=== PATIENT | male | born 1965 | race Caucasian/White ===

== ENCOUNTER → 2016-07-08 | Outpatient (CLI) | payer OTHER ==
[~2016-07-08] MED LIST: ACETAMINOPHEN TAB 500 MG TAB PO ONE; LORATADINE 10 MG TAB PO ONE; SODIUM CHLORIDE 0.9% 250 ML in EMPTY BAG 1 BAG IV PRN; SODIUM CHLORIDE 0.9% 500 ML in EMPTY BAG 1 BAG IV PRN
[2016-07-08 07:43] VITALS: TEMP 97.7
[2016-07-08 09:27] VITALS: BP 153/104; PULSE 80; RESP 18
== END ==
LOC: PROCWHC3 07:28
PROVIDERS: ATTEND Physician Assistant
DX: K50.10 Crohn's disease of large intestine without complications (principal)
CPT/HCPCS: 96361; 96413; 96415; J1745

== ENCOUNTER → 2016-09-02 | Outpatient (CLI) | payer OTHER ==
[2016-09-02 08:13] VITALS: RESP 18; TEMP 98.4
[2016-09-02 09:15] VITALS: BP 128/91; PULSE 70
[2016-09-02 10:22] LABS: Basophils % (A) 1 %; CH 31.9; CHCM 35.4; Eosinophils # (A) 0.1 k/uL (0-0.7); Eosinophils % (A) 2 %; HCT 50.2 % (39.0-53.0); HDW 2.81; HGB 16.8 gm/dL (13.0-17.5); Luc # (Auto) 0.26; Luc % (Auto) 3; Lymphocytes # (A) 1.9 k/uL (1.0-4.8); Lymphocytes % (A) 24 %; MCH 30.3 pg (25.0-35.0); MCHC 33.5 g/dL (31.0-37.0); MCV 90.5 fL (80.0-100.0); Mean Platelet Volume 6.8; Monocytes # (A) 0.5 k/uL (0-1.0); Monocytes % (A) 7 %; Neutrophils % (A) 64 %; RBC 5.55 m/uL (4.30-5.90); RDW 13.4 % (11.5-15.5); WBC 7.8 k/uL (3.8-10.6); WBC (Perox) 7.93
[2016-09-02 10:40] LABS: ALT 60 U/L (21-72); AST 44 U/L (17-59); Alkaline Phosphatase 55 U/L (38-126); Anion Gap 12 mmol/L; Blood Urea Nitrogen 16 mg/dL (9-20); Calcium 9.6 mg/dL (8.4-10.2); Carbon Dioxide 29 mmol/L (22-30); Chloride 100 mmol/L (98-107); Glucose 102 mg/dL (74-99); Non-African American GFR(MDRD) >60 (>60 ml/min/1.73 sqM); Potassium 4.6 mmol/L (3.5-5.1); Sodium 141 mmol/L (137-145); Total Bilirubin 0.7 mg/dL (0.2-1.3); Total Protein 8.3 g/dL (6.3-8.2)
== END | disposition home or self-care (01) ==
LOC: PROCWHC3 07:49
DX: K50.10 Crohn's disease of large intestine without complications (principal)
CPT/HCPCS: 80053; 85025; 96361; 96413; 96415; 36415; J1745

== ENCOUNTER → 2016-10-28 | Outpatient (CLI) | payer OTHER ==
[~2016-10-28] MED LIST changes: -ACETAMINOPHEN TAB 500 MG TAB PO ONE; -LORATADINE 10 MG TAB PO ONE
[2016-10-28 08:11] VITALS: TEMP 98
[2016-10-28 09:54] VITALS: BP 141/91; PULSE 76; RESP 20
== END | disposition home or self-care (01) ==
LOC: PROCWHC3 07:44
DX: K50.90 Crohn's disease, unspecified, without complications (principal)
CPT/HCPCS: 96413; 96415; J1745

== ENCOUNTER → 2017-01-08 | Outpatient (CLI) | payer OTHER ==
[~2017-01-08] MED LIST changes: +ACETAMINOPHEN TAB 500 MG TAB PO ONE; +LORATADINE 10 MG TAB PO ONE
[2017-01-08 09:11] VITALS: RESP 16; TEMP 98
[2017-01-08 10:34] VITALS: BP 129/80; PULSE 60
== END ==
LOC: PROCWHC3 08:56
DX: Z51.11 Encounter for antineoplastic chemotherapy (principal); K50.10 Crohn's disease of large intestine without complications
CPT/HCPCS: 96413; 96415; J1745

== ENCOUNTER → 2017-03-05 | Outpatient (CLI) | payer OTHER ==
[~2017-03-05] MED LIST changes: -ACETAMINOPHEN TAB 500 MG TAB PO ONE; -LORATADINE 10 MG TAB PO ONE; -SODIUM CHLORIDE 0.9% 250 ML in EMPTY BAG 1 BAG IV PRN; -SODIUM CHLORIDE 0.9% 500 ML in EMPTY BAG 1 BAG IV PRN; +TUBERCULIN PPD (SKIN TEST) 5 UNIT/0.1 ML (MDV) VIAL INTRADERMA NR
[2017-03-05 09:18] VITALS: BP 124/87; PULSE 68; RESP 16; TEMP 98
== END ==
LOC: PROCWHC3 09:03
PROVIDERS: ATTEND Physician Assistant
DX: K50.10 Crohn's disease of large intestine without complications (principal)
CPT/HCPCS: 86580

== ENCOUNTER → 2018-03-09 | Outpatient (CLI) | payer OTHER ==
[2018-03-09 15:28] LABS: HCT 46.4 % (39.0-53.0); HGB 16.2 gm/dL (13.0-17.5); MCH 31.3 pg (25.0-35.0); MCHC 34.9 g/dL (31.0-37.0); MCV 89.6 fL (80.0-100.0); Mean Platelet Volume 6.4; Platelet Count 232 k/uL (150-450); RBC 5.17 m/uL (4.30-5.90); RDW 13.2 % (11.5-15.5); WBC 9.8 k/uL (3.8-10.6)
[2018-03-09 15:54] LABS: ALT 40 U/L (21-72); AST 40 U/L (17-59); Albumin 4.9 g/dL (3.5-5.0); Alkaline Phosphatase 61 U/L (38-126); Anion Gap 11 mmol/L; Blood Urea Nitrogen 21 mg/dL (9-20); C Reactive Protein <5.0 mg/L (<10.0); Carbon Dioxide 27 mmol/L (22-30); Chloride 99 mmol/L (98-107); Glucose 92 mg/dL (74-99); Sodium 137 mmol/L (137-145); Total Bilirubin 1.2 mg/dL (0.2-1.3); Total Protein 8.6 g/dL (6.3-8.2)
[2018-03-09 16:49] LABS: Erythrocyte Sedimentation Rate 3 mm/hr (0-15)
== END | disposition home or self-care (01) ==
LOC: LABWHC1 14:57
DX: K50.10 Crohn's disease of large intestine without complications (principal)
CPT/HCPCS: 36415; 80053; 85027; 85652; 86140; 86480

== ENCOUNTER 2018-04-25 17:08 | Emergency (ER) | payer OTHER ==
[2018-04-25 17:12] VITALS: BP 144/104; PULSE 94; RESP 18; TEMP 98.5
[2018-04-25] MEDS ORDERED: ASPIRIN 81 MG PO STA (17:26)
[2018-04-25] MEDS ORDERED: KETOROLAC 30 MG/ML 1 ML VIAL IVP STA (17:26)
--- NOTE | 2018-04-25 17:32 | ED ---
Chest Pain HPI - General Chief Complaint: Chest Pain Stated Complaint: CP Time Seen by Provider: 04/25/18 17:18 Source: patient, RN notes reviewed Mode of arrival: ambulatory Limitations: no limitations - History of Present Illness Initial Comments: This is a 52-year-old male with no prior history of heart or lung disease who had the onset prior to admission of some sharp bee sting leg left anterior chest pain while watching a football game earlier.His blood pressure was elevated. The pain was 4-5/10 severity that radiated to the back he denies any fevers chills nausea vomiting sweats cough or phlegm production. He does admit to doing some lifting earlier today. He had no prior pain like this before he points to the costal sternal margin the lower left side. MD Complaint: chest pain - Related Data Home Medications Medication Instructions Recorded Confirmed Zolpidem [Ambien] 5 mg PO HS PRN 11/22/13 03/05/17 inFLIXimab [Remicade] 500 mg IVPB DIRECTED 11/22/13 03/05/17 Levothyroxine Sodium [Synthroid] 175 mcg PO DAILY 01/09/16 03/05/17 Benazepril HCl 40 mg PO DAILY 09/02/16 03/05/17 Previous Rx's Medication Instructions Recorded Ibuprofen 800 mg PO Q6HR PRN #20 tablet 04/25/18 Allergies Allergy/AdvReac Type Severity Reaction Status Date / Time No Known Allergies Allergy Verified 04/25/18 17:12 Review of Systems ROS Statement: Those systems with pertinent positive or pertinent negative responses have been documented in the HPI. ROS Other: All systems not noted in ROS Statement are negative. EKG Findings - EKG Results: EKG: interpreted by ALEJANDRINA DELGADO, sinus rhythm, normal axis, normal QRS, normal ST/ T, no acute changes (Normal sinus rhythm with a rate of 83. Interval 190 QRS duration 90 QT since QTC 362/[address]-T wave changes) Past Medical History Past Medical History: Hypertension, Thyroid Disorder Additional Past Medical History / Comment(s): CROHN'S DISEASE, History of Any Multi-Drug Resistant Organisms: None Reported Additional Past Surgical History / Comment(s): COLONOSCOPY, Past Anesthesia/Blood Transfusion Reactions: No Reported Reaction Past Psychological History: No Psychological Hx Reported Smoking Status: Never smoker Past Alcohol Use History: Occasional Past Drug Use History: None Reported - Past Family History Father Family Medical History: Cancer General Exam - General Exam Comments Initial Comments: This is a well-developed well-nourished awake alert oriented 3 male Limitations: no limitations General appearance: alert, in no apparent distress Head exam: Present: atraumatic, normocephalic, normal inspection Eye exam: Present: normal appearance, PERRL, EOMI. Absent: scleral icterus, conjunctival injection, periorbital swelling ENT exam: Present: normal exam, mucous membranes moist Neck exam: Present: normal inspection. Absent: tenderness, meningismus, lymphadenopathy Respiratory exam: Present: normal lung sounds bilaterally, chest wall tenderness (Reproducible tennis palpation on the left costochondral costal sternal margin no step-off or crepitation). Absent: respiratory distress, wheezes, rales, rhonchi, stridor Cardiovascular Exam: Present: regular rate, normal rhythm, normal heart sounds. Absent: systolic murmur, diastolic murmur, rubs, gallop, clicks GI/Abdominal exam: Present: soft, normal bowel sounds. Absent: distended, tenderness, guarding, rebound, rigid Extremities exam: Present: normal inspection, full ROM, normal capillary refill. Absent: tenderness, pedal edema, joint swelling, calf tenderness Back exam: Present: normal inspection Neurological exam: Present: alert, oriented X3, CN II-XII intact Psychiatric exam: Present: normal affect, normal mood Skin exam: Present: warm, dry, intact, normal color. Absent: rash Course Vital Signs 04/25/18 17:11 Temperature 98.5 F Pulse Rate 94 Respiratory 18 Rate Blood Pressure 144/104 O2 Sat by Pulse 100 Oximetry Chest Pain MDM - MDM Review the imaging shows no acute findings. Patient is feeling much improved after IV Toradol the presentation is consistent with chest wall pain noncardiac pain. He will be discharged we did discuss his creatinine he is increase his oral fluids follow-up with his doctor return when necessary Disposition Clinical Impression: Costalchondritis, Chest wall syndrome Disposition: HOME SELF-CARE Instructions: Costochondritis (ED) Prescriptions: Ibuprofen 800 mg PO Q6HR PRN #20 tablet PRN Reason: Pain Is patient prescribed a controlled substance at d/c from ED?: No Referrals: Shaun Estrella MD [Primary Care Provider] - 1-2 days
[2018-04-25 17:39] LABS: Basophils # (A) 0.1 k/uL (0-0.2); Basophils % (A) 1 %; Eosinophils # (A) 0.1 k/uL (0-0.7); Eosinophils % (A) 2 %; HCT 48.1 % (39.0-53.0); HGB 16.4 gm/dL (13.0-17.5); Lymphocytes # (A) 2.2 k/uL (1.0-4.8); Lymphocytes % (A) 29 %; MCH 31.2 pg (25.0-35.0); MCV 91.6 fL (80.0-100.0); Mean Platelet Volume 6.7; Monocytes # (A) 0.7 k/uL (0-1.0); Monocytes % (A) 10 %; Neutrophils # (A) 4.4 k/uL (1.3-7.7); Neutrophils % (A) 56 %; Platelet Count 267 k/uL (150-450); RBC 5.25 m/uL (4.30-5.90); WBC 7.8 k/uL (3.8-10.6)
[2018-04-25 17:50] LABS: Albumin 4.7 g/dL (3.5-5.0); Calcium 9.7 mg/dL (8.4-10.2); Potassium 3.8 mmol/L (3.5-5.1); Total Bilirubin 0.6 mg/dL (0.2-1.3); Total Protein 8.2 g/dL (6.3-8.2)
[2018-04-25 17:53] LABS: D-Dimer 0.27 mg/L FEU (<0.60); INR 1.1 (<1.2); Partial Thromboplastin Time 26.1 sec (22.0-30.0); Prothrombin Time 10.8 sec (9.0-12.0)
[2018-04-25 17:59] LABS: Creatine Kinase 218 U/L (55-170)
--- NOTE | 2018-04-25 18:06 | XR ---
EXAMINATION TYPE: XR chest 2V DATE OF EXAM: 04/25/2018 COMPARISON: NONE HISTORY: Chest pain TECHNIQUE: Frontal and lateral views of the chest are obtained. FINDINGS: There is no focal air space opacity, pleural effusion, or pneumothorax seen. The cardiac silhouette size is within normal limits. The osseous structures are intact. There are overlying car diac leads. Strand-like densities at the left lung base may reflect atelectasis or scarring. IMPRESSION: Minimal basilar atelectasis or scarring.
[2018-04-25 18:12] LABS: Creatine Kinase MB 2.5 ng/mL (0.0-2.4); Troponin I <0.012 ng/mL (0.000-0.034)
== END 2018-04-25 18:44 | disposition home or self-care (01) ==
LOC: EC 17:08
DX: M94.0 Chondrocostal junction syndrome [Tietze] (principal); K50.90 Crohn's disease, unspecified, without complications; Z79.899 Other long term (current) drug therapy
CPT/HCPCS: 36415; 93005; 85379; 83880; 80053; 82550; 82553; 83735; 84484; 85025; 85610; 85730; 71046; 99285; 96374; J1885

== ENCOUNTER → 2018-10-26 | Outpatient (CLI) | payer OTHER ==
[2018-10-26 15:20] LABS: HCT 46.7 % (39.0-53.0); HGB 16.3 gm/dL (13.0-17.5); MCH 30.9 pg (25.0-35.0); MCHC 34.9 g/dL (31.0-37.0); MCV 88.6 fL (80.0-100.0); Mean Platelet Volume 6.9; Platelet Count 334 k/uL (150-450); RBC 5.26 m/uL (4.30-5.90); RDW 13.4 % (11.5-15.5); WBC 8.7 k/uL (3.8-10.6)
[2018-10-26 23:59] LABS: Albumin/Globulin Ratio 1.79 (1.60-3.17); Anion Gap 10.7 mmol/L (4.00-12.00); Calcium 9.7 mg/dL (8.7-10.3); Carbon Dioxide 25.3 mmol/L (21.6-31.8); Globulin 2.8 g/dL (1.6-3.3); Total Bilirubin 0.5 mg/dL (0.3-1.2); Total Protein 7.8 g/dL (6.2-8.2)
== END | disposition home or self-care (01) ==
LOC: LABWHC1 14:43
DX: K50.10 Crohn's disease of large intestine without complications (principal)
CPT/HCPCS: 36415; 80053; 82306; 85027

== ENCOUNTER → 2019-01-04 | Day surgery (SDC) | payer OTHER ==
[2018-12-31 12:54] VITALS: BMI 31.5
[~2019-01-04] MED LIST changes: +LACTATED RINGERS 1,000 ML IV SCH; +LIDOCAINE 1% 20 ML VIAL (10MG/ML) FOR IV START INTRADERMA PRN; +MIDAZOLAM 2 MG/2 ML VIAL ONE; +PROPOFOL 10 MG/ML 20 ML VIAL IV ONE; -TUBERCULIN PPD (SKIN TEST) 5 UNIT/0.1 ML (MDV) VIAL INTRADERMA NR; +fentaNYL (PF) 50 MCG/ML 2 ML AMP ONE
[2019-01-04 07:50] VITALS: RESP 16; TEMP 99.1
--- NOTE | 2019-01-04 09:22 | P.PCN ---
Date of Procedure: 01/04/19 Description of Procedure: BRIEF HISTORY: Patient is a 53-year-old pleasant male scheduled for an elective colonoscopy as a part of colon cancer surveillance in patient with a known history of Crohn's colitis. Originally diagnosed in 2000 the patient was started on treatment with Remicade, which was changed to Inflectra. He reports symptoms are well- controlled with one to 2 bowel movements daily without abdominal pain or blood per rectum. Last colonoscopy was in 12/2015 showing only mild nonspecific changes in the sigmoid with quiescent and inactive colitis on pathology. PROCEDURE PERFORMED: Colonoscopy with polypectomy and random biopsy. PREOPERATIVE DIAGNOSIS: Surveillance colonoscopy for ligament neoplasm of the colon, Crohn's colitis. ESTIMATED BLOOD LOSS: Minimal. IV sedation per Anesthesia. PROCEDURE: After informed consent was obtained, the patient, was brought into the endoscopy unit. IV sedation was administered by Anesthesia under continuous monitoring. Digital rectal examination was normal. Initially the Olympus CF-190 flexible video colonoscope was then inserted in the rectum, gradually advanced into the cecum without any difficulty. The terminal ileum was intubated and appeared normal with biopsies taken. Careful examination was performed as the scope was gradually being withdrawn. Ileocecal valve and the appendiceal orifice were visualized and appeared normal. Prep was excellent. Mucosa of the cecum, ascending colon, transverse colon, descending colon, sigmoid colon, and rectum appeared grossly normal except for some nonspecific changes in the distal ileum seen on previous colonoscopy and felt to be scarring from previously active disease. Random biopsies were taken every 10 cm at 80 cm from the anal verge, 70 cm, 60 cm, 50 cm, 40 cm, 30 cm, 20 cm, and 10 cm. Mild scattered sigmoid diverticulosis. Mild internal hemorrhoids. 2 diminutive sessile cecal polyps measuring 2 mm removed with cold forcep polypectomy. Retroflexion was performed in the rectum and no lesions were seen. The patient tolerated the procedure well. IMPRESSION: 2 diminutive cecal polyps removed with cold forceps from the cecum. Mild scattered sigmoid diverticulosis. Mild internal hemorrhoids. Random biopsies of the terminal ileum and every 10 cm starting from 80 cm from the anal verge to 10 cm. RECOMMENDATIONS: Findings of this examination were discussed with the patient in his father. Okay to resume high-fiber diet. Continue biologic therapy. Await pathology from biopsies. Anticipate repeat colonoscopy for surveillance in a patient with Crohn's colitis in 2 years.
[2019-01-04 09:41] VITALS: BP 127/87; PULSE 71
== END | disposition home or self-care (01) ==
LOC: ORWHC2ENDO 07:31
PROVIDERS: ATTEND Internal Medicine
DX: Z12.11 Encounter for screening for malignant neoplasm of colon (principal); K50.10 Crohn's disease of large intestine without complications; K57.30 Diverticulosis of large intestine without perforation or abscess without bleeding; K64.8 Other hemorrhoids; I10 Essential (primary) hypertension; E07.9 Disorder of thyroid, unspecified; Z79.899 Other long term (current) drug therapy; Z79.890 Hormone replacement therapy
CPT/HCPCS: 88305; 45380; 45385; J2250; J3010; J2704

== ENCOUNTER → 2020-04-24 | Outpatient (CLI) | payer OTHER ==
[2020-04-24 15:55] LABS: HCT 50.8 % (39.0-53.0); HGB 17.5 gm/dL (13.0-17.5); MCH 32.2 pg (25.0-35.0); MCHC 34.4 g/dL (31.0-37.0); MCV 93.7 fL (80.0-100.0); Mean Platelet Volume 7.6; Platelet Count 320 k/uL (150-450); RBC 5.42 m/uL (4.30-5.90); RDW 12.7 % (11.5-15.5); WBC 10.6 k/uL (3.8-10.6)
[2020-04-25 00:22] LABS: African American GFR (CKD) 87.7 (60.0-200.0); Albumin 4.9 g/dL (3.80-4.90); Albumin/Globulin Ratio 1.69 (1.60-3.17); Anion Gap 14.9 mmol/L (4.00-12.00); BUN/Creat Ratio 19.09 Ratio (12.00-20.00); Calcium 9.8 mg/dL (8.7-10.3); Carbon Dioxide 23.1 mmol/L (21.6-31.8); Globulin 2.9 g/dL (1.6-3.3); Non-African American GFR(CKD) 75.7 (60.0-200.0); Potassium 3.6 mmol/L (3.5-5.5); Total Bilirubin 0.8 mg/dL (0.3-1.2); Total Protein 7.8 g/dL (6.2-8.2)
[2020-04-25 00:36] LABS: Folate, Serum 10.2 ng/mL
== END | disposition home or self-care (01) ==
LOC: LABWHC1 14:35
PROVIDERS: ATTEND Physician Assistant
DX: K50.10 Crohn's disease of large intestine without complications (principal)
CPT/HCPCS: 36415; 80053; 82306; 82607; 82746; 85027

== ENCOUNTER → 2021-07-18 | Outpatient (CLI) | payer OTHER ==
[2021-07-18 18:41] LABS: Basophils # (A) 0.07 X 10*3/uL (0.00-0.10); Basophils % (A) 0.7 %; Eosinophils # (A) 0.09 X 10*3/uL (0.04-0.35); Eosinophils % (A) 0.9 %; HCT 47.7 % (39.6-50.0); HGB 16.3 g/dL (13.0-17.0); Lymphocytes # (A) 1.13 X 10*3/uL (0.90-5.00); Lymphocytes % (A) 11.6 %; MCHC 34.2 g/dL (32.0-37.0); MCV 90.7 fL (80.0-97.0); Monocytes # (A) 1.14 X 10*3/uL (0.20-1.00); Monocytes % (A) 11.7 %; Neutrophils # (A) 7.24 X 10*3/uL (1.80-7.70); Neutrophils % (A) 74.7 %; Platelet Count 281 X 10*3/uL (140-440); RBC 5.26 X 10*6/uL (4.40-5.60); RDW 12.8 % (11.5-14.5); WBC 9.71 X 10*3/uL (4.50-10.00)
[2021-07-18 18:55] LABS: African American GFR (CKD) 88.1 (60.0-200.0); Albumin 4.6 g/dL (3.8-4.9); Albumin/Globulin Ratio 1.37 (1.60-3.17); Anion Gap 12.9 mmol/L (10.00-18.00); BUN/Creat Ratio 18.17 Ratio (12.00-20.00); Blood Urea Nitrogen 19.8 mg/dL (9.0-27.0); Calcium 9.5 mg/dL (8.7-10.3); Carbon Dioxide 23.3 mmol/L (20.0-27.5); Globulin 3.3 g/dL (1.6-3.3); Potassium 4.1 mmol/L (3.5-5.5); Total Bilirubin 0.6 mg/dL (0.30-1.20); Total Protein 7.9 g/dL (6.2-8.2)
== END | disposition home or self-care (01) ==
LOC: LABWHC1 10:42
PROVIDERS: ATTEND Internal Medicine Gastroenterology
DX: K50.10 Crohn's disease of large intestine without complications (principal)
CPT/HCPCS: 36415; 80053; 85025; 86480

== ENCOUNTER 2024-06-21 09:03 | Emergency (ER) | payer BC, OTHER ==
[2024-06-21 09:09] VITALS: TEMP 98
--- NOTE | 2024-06-21 09:24 | ED ---
SOB HPI - General Chief Complaint: Shortness of Breath Stated Complaint: Abd pain,vomiting Time Seen by Provider: 06/21/24 09:24 Source: patient, RN notes reviewed, old records reviewed Mode of arrival: wheelchair Limitations: no limitations - History of Present Illness Initial Comments: This is a 58-year-old male presenting today. Patient presents for evaluation of chest pain and epigastric abdominal pain unable to sleep or get comfortable unable to lie down flat with shortness of breath. Patient has underlying history of Crohn's disease. Patient does have sick contacts including positive holiday democrat but does not believe he knows anyone that his specific diagnosis. He does have nausea no vomiting occasional diarrhea. Also complaining of abdominal pain MD Complaint: shortness of breath, cough -: days(s) (2) Severity: moderate Severity scale (1-10): 4 Consistency: constant Improves With: nothing Worsens With: lying flat Associated Symptoms: cough, orthopnea Treatments Prior to Arrival: none - Related Data Home Medications Medication Instructions Recorded Confirmed Adalimumab [Humira(Cf) Pen] 40 mg SQ Q14D 06/21/24 06/21/24 Levothyroxine Sodium [Synthroid] 200 mcg PO DAILY 06/21/24 06/21/24 Zolpidem Tartrate [Ambien] 10 mg PO HS PRN 06/21/24 06/21/24 amLODIPine [Norvasc] 5 mg PO DAILY 06/21/24 06/21/24 hydroCHLOROthiazide [Hydrodiuril] 25 mg PO DAILY 06/21/24 06/21/24 lisinopriL 30 mg PO DAILY 06/21/24 06/21/24 prednisoLONE ACETATE 1% OPHTH 1 drop BOTH EYES BID PRN 06/21/24 06/21/24 [Pred Forte 1%] Allergies Allergy/AdvReac Type Severity Reaction Status Date / Time No Known Allergies Allergy Verified 06/21/24 13:32 Review of Systems ROS Statement: Those systems with pertinent positive or pertinent negative responses have been documented in the HPI. ROS Other: All systems not noted in ROS Statement are negative. Past Medical History Past Medical History: Hypertension, Thyroid Disorder Additional Past Medical History / Comment(s): CROHN'S DISEASE, History of Any Multi-Drug Resistant Organisms: None Reported Additional Past Surgical History / Comment(s): COLONOSCOPY, Past Anesthesia/Blood Transfusion Reactions: No Reported Reaction Past Psychological History: No Psychological Hx Reported Past Alcohol Use History: Occasional Past Drug Use History: None Reported - Past Family History Father Family Medical History: Cancer General Exam Limitations: no limitations General appearance: alert, in no apparent distress Head exam: Present: atraumatic, normocephalic, normal inspection Eye exam: Present: normal appearance, PERRL, EOMI. Absent: scleral icterus, conjunctival injection, periorbital swelling ENT exam: Present: normal exam, mucous membranes moist Neck exam: Present: normal inspection. Absent: tenderness, meningismus, lymphadenopathy Respiratory exam: Present: normal lung sounds bilaterally. Absent: respiratory distress, wheezes, rales, rhonchi, stridor Cardiovascular Exam: Present: regular rate, normal rhythm, normal heart sounds. Absent: systolic murmur, diastolic murmur, rubs, gallop, clicks GI/Abdominal exam: Present: soft, normal bowel sounds. Absent: distended, tenderness, guarding, rebound, rigid Extremities exam: Present: normal inspection, full ROM, normal capillary refill. Absent: tenderness, pedal edema, joint swelling, calf tenderness Back exam: Present: normal inspection Neurological exam: Present: alert, oriented X3, CN II-XII intact Psychiatric exam: Present: normal affect, normal mood Skin exam: Present: warm, dry, intact, normal color. Absent: rash Course Vital Signs 06/21/24 06/21/24 06/21/24 09:07 12:56 13:46 Temperature 98.0 F Pulse Rate 103 H 89 83 Respiratory 20 20 18 Rate Blood Pressure 149/96 135/94 126/83 O2 Sat by Pulse 95 95 94 L Oximetry - Reevaluation(s) Reevaluation #1: 06/21/24 12:55 Medical records reviewed Reevaluation #2: 06/21/24 13:12 Patient symptoms improved here in the ER Reevaluation #3: 06/21/24 13:12 Patient informed of results and questions answered Reevaluation #4: Was pt. sent in by a medical professional or institution (, PA, ELECTRICIAN CHIEF, urgent care, hospital, or [place] health care facility...) When possible be specific @ -no Did you speak to anyone other than the patient for history (EMS, parent, family, police, friend...)? What history was obtained from this source @ -no Did you review nursing and triage notes (agree or disagree)? Why? @ -agree Are old charts reviewed (outside hosp., previous admission, EMS record, old EKG, old radiological studies, urgent care reports/EKG's, [place] health care facility records)? Report findings @ -yes Differential Diagnosis (chest pain, altered mental status, abdominal pain women, abdominal pain men, vaginal bleeding, weakness, fever, dyspnea, syncope, headache, dizziness, GI bleed, back pain, seizure, CVA, palpatations, mental health, musculoskeletal)? @ -prior EKG interpreted by me (3pts min.). @ -yes X-rays interpreted by me (1pt min.). @ -yes negative for acute disease CT interpreted by me (1pt min.). @ -no U/S interpreted by me (1pt. min.). @ -no What testing was considered but not performed or refused? (CT, X-rays, U/S, labs)? Why? @ -none What meds were considered but not given or refused? Why? @ -none Did you discuss the management of the patient with other professionals (professionals i.e. , PA, ELECTRICIAN CHIEF, lab, RT, psych nurse, vp digital marketing social media and crm, security system technician, teacher, worldwide chief creative officer, case finishing machine adjuster)? Give summary @ -no Was smoking cessation discussed for >3mins.? @ -no Was critical care preformed (if so, how long)? @ -no Were there social determinants of health that impacted care today? How? (Homelessness, low income, unemployed, alcoholism, drug addiction, transportati on, low edu. Level, literacy, decrease access to med. care, detention, rehab)? @ -none Was there de-escalation of care discussed even if they declined (Discuss DNR or withdrawal of care, Hospice)? DNR status @ -no What co-morbidities impacted this encounter? (DM, HTN, Smoking, COPD, CAD, Cancer, CVA, ARF, Chemo, Hep., AIDS, mental health diagnosis, sleep apnea, morbid obesity)? @ -none Was patient admitted / discharged? Hospital course, mention meds given and route, prescriptions, significant lab abnormalities, going to OR and other pertinent info. @ - 58 male nausea vomiting no acute findings on CT scan lab testing is normal patient given symptomatic treatment and can be discharged home Discharge Undiagnosed new problem with uncertain prognosis? @ -no Drug Therapy requiring intensive monitoring for toxicity (Heparin, Nitro, Insulin, Cardizem)? @ -no Were any procedures done? @ -no Diagnosis/symptom? @ -Nausea vomiting weakness Acute, or Chronic, or Acute on Chronic? @ -Acute Uncomplicated (without systemic symptoms) or Complicated (systemic symptoms)? @ -Complicated Side effects of treatment? @ -no Exacerbation, Progression, or Severe Exacerbation? @ -exacerbation Poses a threat to life or bodily function? How? (Chest pain, [place], [place], pneumonia, PE, COPD, DKA, ARF, appy, cholecystitis, CVA, Diverticulitis, Homicidal, Suicidal, threat to staff... and all critical care pts) @ -no Reevaluation #5: Differential Dyspnea: Coronary syndrome, arrhythmia, tamponade, asthma, COPD, pulmonary embolism, pneumonia, pneumothorax, pulmonary effusion, anaphylaxis, diabetic ketoacidosis, flailed chest, pulmonary contusion, diaphragmatic rupture, anemia, ne uromuscular, this is not meant to be an all-inclusive list. Differential Abdominal Pain Men: Appendicitis, cholecystitis, diverticulosis, ischemic bowel, pancreatitis, hepatitis, UTI, gastroenteritis, AAA, incarcerated hernia, bowel obstruction, constipation, inflammatory bowel, hepatitis, peptic ulcer disease, splenic infarction, perforated viscus, testicular torsion, this is not meant to be an all-inclusive list Medical Decision Making - Medical Decision Making 58 male nausea vomiting no acute findings on CT scan lab testing is normal p atient given symptomatic treatment and can be discharged home - Lab Data Result diagrams: 06/21/24 11:20 06/21/24 11:20 Lab Results 06/21/24 06/21/24 06/21/24 Range/Units 11:20 11:20 11:20 WBC 11.0 H (3.8-10.6) k/uL RBC 5.53 (4.30-5.90) m/uL Hgb 17.4 (13.0-17.5) gm/dL Hct 49.7 (39.0-53.0) % MCV 89.8 (80.0-100.0) fL MCH 31.5 (25.0-35.0) pg MCHC 35.0 (31.0-37.0) g/dL RDW 12.9 (11.5-15.5) % Plt Count 307 (150-450) k/uL MPV 8.1 Neutrophils % 70 % Lymphocytes % 16 % Monocytes % 10 % Eosinophils % 1 % Basophils % 1 % Neutrophils # 7.6 (1.3-7.7) k/uL Lymphocytes # 1.8 (1.0-4.8) k/uL Monocytes # 1.1 H (0-1.0) k/uL Eosinophils # 0.1 (0-0.7) k/uL Basophils # 0.1 (0-0.2) k/uL Sodium 134 L (137-145) mmol/L Potassium 4.3 (3.5-5.1) mmol/L Chloride 94 L (98-107) mmol/L Carbon Dioxide 24 (22-30) mmol/L Anion Gap 16 mmol/L BUN 14 (9-20) mg/dL Creatinine 1.09 (0.66-1.25) mg/dL Est GFR (CKD-EPI)AfAm 86 (>60 ml/min/1.73 sqM) Est GFR (CKD-EPI)NonAf 75 (>60 ml/min/1.73 sqM) Glucose 121 H (74-99) mg/dL Plasma Lactic Acid Saroj (0.7-2.0) mmol/L Calcium 10.5 H (8.4-10.2) mg/dL Phosphorus 4.4 (2.5-4.5) mg/dL Magnesium 1.9 (1.6-2.3) mg/dL Total Bilirubin 1.1 (0.2-1.3) mg/dL AST 41 (17-59) U/L ALT 39 (4-49) U/L Alkaline Phosphatase 69 (38-126) U/L Troponin I <0.012 (0.000-0.034) ng/mL Total Protein 9.2 H (6.3-8.2) g/dL Albumin 5.5 H (3.5-5.0) g/dL Amylase 43 (30-110) U/L Lipase 51 (23-300) U/L 06/21/ Range/Units 11:48 WBC (3.8-10.6) k/uL RBC (4.30-5.90) m/uL Hgb (13.0-17.5) gm/dL Hct (39.0-53.0) % MCV (80.0-100.0) fL MCH (25.0-35.0) pg MCHC (31.0-37.0) g/dL RDW (11.5-15.5) % Plt Count (150-450) k/uL MPV Neutrophils % % Lymphocytes % % Monocytes % % Eosinophils % % Basophils % % Neutrophils # (1.3-7.7) k/uL Lymphocytes # (1.0-4.8) k/uL Monocytes # (0-1.0) k/uL Eosinophils # (0-0.7) k/uL Basophils # (0-0.2) k/uL Sodium (137-145) mmol/L Potassium (3.5-5.1) mmol/L Chloride (98-107) mmol/L Carbon Dioxide (22-30) mmol/L Anion Gap mmol/L BUN (9-20) mg/dL Creatinine (0.66-1.25) mg/dL Est GFR (CKD-EPI)AfAm (>60 ml/min/1.73 sqM) Est GFR (CKD-EPI)NonAf (>60 ml/min/1.73 sqM) Glucose (74-99) mg/dL Plasma Lactic Acid Saroj 1.3 (0.7-2.0) mmol/L Calcium (8.4-10.2) mg/dL Phosphorus (2.5-4.5) mg/dL Magnesium (1.6-2.3) mg/dL Total Bilirubin (0.2-1.3) mg/dL AST (17-59) U/L ALT (4-49) U/L Alkaline Phosphatase (38-126) U/L Troponin I (0.000-0.034) ng/mL Total Protein (6.3-8.2) g/dL Albumin (3.5-5.0) g/dL Amylase (30-110) U/L Lipase (23-300) U/L - EKG Data -: EKG Interpreted by Me (EKG is sinus tachycardia 104 GA 173 QRS 100 QTc 395) - Radiology Data Radiology results: report reviewed (CTA chest abdomen pelvis negative for acute disease), image reviewed Disposition Clinical Impression: Nausea & vomiting, Dyspnea Disposition: HOME SELF-CARE Condition: Good Instructions (If sedation given, give patient instructions): Acute Nausea and Vomiting (ED) Is patient prescribed a controlled substance at d/c from ED?: No Referrals: Shaun Estrella MD [Primary Care Provider] - 1-2 days Time of Disposition: 13:00
[2024-06-21 11:39] LABS: Basophils # (A) 0.1 k/uL (0-0.2); Basophils % (A) 1 %; Eosinophils # (A) 0.1 k/uL (0-0.7); Eosinophils % (A) 1 %; HCT 49.7 % (39.0-53.0); HGB 17.4 gm/dL (13.0-17.5); Lymphocytes # (A) 1.8 k/uL (1.0-4.8); Lymphocytes % (A) 16 %; MCH 31.5 pg (25.0-35.0); MCV 89.8 fL (80.0-100.0); Mean Platelet Volume 8.1; Monocytes # (A) 1.1 k/uL (0-1.0); Monocytes % (A) 10 %; Neutrophils # (A) 7.6 k/uL (1.3-7.7); Neutrophils % (A) 70 %; Platelet Count 307 k/uL (150-450); RBC 5.53 m/uL (4.30-5.90); RDW 12.9 % (11.5-15.5)
[2024-06-21 11:53] LABS: ALT 39 U/L (4-49); AST 41 U/L (17-59); African American GFR (CKD) 86 (>60 ml/min/1.73 sqM); Albumin 5.5 g/dL (3.5-5.0); Alkaline Phosphatase 69 U/L (38-126); Amylase 43 U/L (30-110); Anion Gap 16 mmol/L; Blood Urea Nitrogen 14 mg/dL (9-20); Calcium 10.5 mg/dL (8.4-10.2); Carbon Dioxide 24 mmol/L (22-30); Chloride 94 mmol/L (98-107); Glucose 121 mg/dL (74-99); Lipase 51 U/L (23-300); Magnesium 1.9 mg/dL (1.6-2.3); Non-African American GFR(CKD) 75 (>60 ml/min/1.73 sqM); Phosphorus 4.4 mg/dL (2.5-4.5); Potassium 4.3 mmol/L (3.5-5.1); Sodium 134 mmol/L (137-145); Total Bilirubin 1.1 mg/dL (0.2-1.3); Total Protein 9.2 g/dL (6.3-8.2)
[2024-06-21] MEDS: ONDANSETRON 4 MG/2 ML VIAL IVP STA (12:57)
[2024-06-21] MEDS: MORPHINE SULFATE 4 MG/ML SYRINGE IVP STA (12:58)
[2024-06-21] MEDS: SODIUM CHLORIDE 0.9% 1,000 ML IV STA (13:00)
--- NOTE | 2024-06-21 13:00 | CT ---
EXAMINATION TYPE: CT angio chest CT DLP: 519.5 mGycm, Automated exposure control for dose reduction was used. DATE OF EXAM: 06/21/2024 12:53 PM COMPARISON: Chest radiograph from same day. CLINICAL INDICATION:Male, 58 years old with history of pain; SOB TECHNIQUE/CONTRAST: CTA scan of the thorax is performed with IV Contrast, patient injected with 100 mL of Isovue 300, pul monary embolism protocol. MIP images are created and reviewed. FINDINGS: Pulmonary Artery: There is no evidence for a filling defect within the pulmonary vasculature to sugge st acute pulmonary embolism. The pulmonary artery is dilated measuring up to 3.5 cm in diameter. Lungs/Pleura: No evidence of focal consolidation, pleural effusion or pneumothorax. Linear atelectasi s within the left lower lobe with additional minimal bilateral lower lobe subsegmental atelectasis. N o suspicious pulmonary nodule or mass. Airway: Large airways are patent. Heart: Heart is within normal limits for size.. No pericardial effusion. Mild coronary artery calcifi cations. Vasculature: No evidence of aortic aneurysm. Ectasia of the ascending thoracic aorta measuring up to 3.8 cm. Mediastinum: No evidence of adenopathy. Musculoskeletal: No acute osseous abnormalities Soft Tissues: Mild bilateral gynecomastia. Lower neck: No significant findings. Upper Abdomen: Please refer to dedicated CT abdomen pelvis of the same day for findings. IMPRESSION: 1. No evidence of pulmonary embolism or acute thoracic process. 2. Dilated main pulmonary artery which can be seen with pulmonary arterial hypertension. [facility], , 06/21/2024 12:58 PM
--- NOTE | 2024-06-21 13:04 | CT ---
EXAMINATION TYPE: CT abdomen pelvis w con CT DLP: 1747.5 mGycm, Automated exposure control for dose reduction was used. DATE OF EXAM: 06/21/2024 12:57 PM COMPARISON: None CLINICAL INDICATION:Male, 58 years old with history of pain; ABD PAIN TECHNIQUE: Standard CT of the abdomen and pelvis following the administration of 100 cc of Isovue 3 00 IV contrast material. Coronal and sagittal reformats were performed. FINDINGS: LOWER CHEST: Please see dedicated CTA chest for findings ABDOMEN LIVER: Diffusely hypoattenuating parenchyma. No focal lesion. GALLBLADDER AND BILE DUCTS: Unremarkable. PANCREAS: Unremarkable. SPLEEN: Unremarkable. ADRENAL GLANDS: Unremarkable. KIDNEYS AND URETERS: No evidence of hydronephrosis or renal calculus. The kidneys enhance symmetrical ly. Right mid kidney exophytic subcentimeter cyst. Contrast is demonstrated within both collecting sy stems on the delayed phase. PELVIS BLADDER: Unremarkable REPRODUCTIVE: Unremarkable. ABDOMEN & PELVIS STOMACH AND BOWEL: Stomach and duodenum are unremarkable. Scattered distal colonic diverticula withou t evidence for acute diverticulitis. No focal bowel wall thickening or surrounding inflammatory dunaway es. The appendix is within normal limits. No evidence of bowel obstruction. PERITONEUM: No evidence of pneumoperitoneum or free fluid. VASCULATURE: No evidence of aortic aneurysm. MUSCULOSKELETAL: No acute osseous abnormalities LYMPH NODES: No gross evidence for lymphadenopathy. SOFT TISSUE/ABDOMINAL WALL: Small fat filled umbilical hernia. IMPRESSION: 1. No acute abdominal/pelvic process. 2. Colonic diverticulosis without evidence for acute diverticulitis. 3. Hepatic steatosis. [facility], , 06/21/2024 1:01 PM
[2024-06-21] MEDS: ONDANSETRON 4 MG ODT STARTER PACK 2 TAB BTL PO STA (13:43)
[2024-06-21] MEDS: ACET/COD 300 MG/30 MG STARTER PACK 6 TAB BTL PO STA (13:43)
[2024-06-21 13:47] VITALS: BP 126/83; PULSE 83; RESP 18
== END 2024-06-21 14:09 | disposition home or self-care (01) ==
LOC: EC 09:03
DX: R11.2 Nausea with vomiting, unspecified (principal); R06.00 Dyspnea, unspecified
CPT/HCPCS: 36415; 80053; 82150; 83605; 83690; 83735; 84100; 84484; 85025; 71275; 74177; 99285; 96374; 96375; 96361; J2270; J2405; S0119; Q9967